=== PATIENT | male | born 1930 | race Caucasian/White ===

== ENCOUNTER 2017-09-30 08:32 | Day surgery (SDC) | payer MEDICARE, BC ==
[2017-09-30] VITALS (8 sets, daily range): BP systolic 121–140; BP diastolic 60–73
[~2017-09-30] VITALS: Ht 177.8 cm; Wt 70.0 kg
[2017-09-30] MEDS ORDERED: normal saline 1000ml 1,000 ML IV PRN (09:00)
[2017-09-30] MEDS ORDERED: MULT-1141 PO (09:22)
[2017-09-30] MEDS ORDERED: SIMV40TA PO (09:22)
[2017-09-30] MEDS ORDERED: UBID100C16 PO (09:22)
[2017-09-30] MEDS ORDERED: FOLI0.8T41 PO (09:22)
[2017-09-30] MEDS ORDERED: FURO-150 PO (09:22)
[2017-09-30] MEDS ORDERED: CALC667T5 PO (09:22)
[2017-09-30] MEDS ORDERED: OMEG-143 PO (09:22)
[2017-09-30] MEDS ORDERED: ASPI-1265 PO (09:22)
[2017-09-30] MEDS ORDERED: SITA25TA3 PO (09:22)
[2017-09-30] MEDS ORDERED: ASCO500C15 PO (09:22)
[2017-09-30] MEDS ORDERED: VITA-268 PO (09:22)
[2017-09-30] MEDS ORDERED: IRON-12 PO (09:22)
[2017-09-30] MEDS ORDERED: VITA400C65 PO (09:22)
[2017-09-30] MEDS ORDERED: GLIP10TA3 PO (09:22)
[2017-09-30 09:37] LABS: BASOPHILS % (AUTO) 0 % (0-1); EOSINOPHILS # (AUTO) 0.2 X10'3 (0-0.9); EOSINOPHILS % (AUTO) 3.2 % (0-6); HEMATOCRIT 27.2 % (42.0-52.0); HEMOGLOBIN 9.2 g/dl (14.0-17.9); LYMPHOCYTES # (AUTO) 0.6 X10'3 (1.1-4.8); LYMPHOCYTES % (AUTO) 10.9 % (21-51); MEAN CORPUSCULAR HEMOGLOBIN 32.9 PG (27.0-31.0); MEAN CORPUSCULAR HGB CONC 33.9 % (33.0-36.5); MEAN CORPUSCULAR VOLUME 97.1 FL (78-98); MEAN PLATELET VOLUME 7.2 FL (7.4-10.4); MONOCYTES # (AUTO) 0.3 X10'3 (0-0.9); MONOCYTES % (AUTO) 5.9 % (2-12); NEUTROPHILS # (AUTO) 4.5 X10'3 (1.8-7.7); PLATELET COUNT 179 X10'3 (140-440); RED CELL DISTRIBUTION WIDTH 15.6 % (11.5-14.5); WHITE BLOOD COUNT 5.6 X10'3 (4.5-11.0)
[2017-09-30] MEDS ORDERED: LIDOcaine 1%/PF (10mg/ml) 5ml vial SQ ONE (09:45)
[2017-09-30] MEDS ORDERED: midazolam 2 mg/2 ml injection IV PRN (09:45)
[2017-09-30] MEDS ORDERED: fentaNYL/PF 50MCG/1 ML 2ML syringe IV PRN (09:45)
[2017-09-30] MEDS ORDERED: heparin 1,000 UNITS/NS 500ml 500 ML ICATH ONE (09:45)
[2017-09-30] MEDS ORDERED: LIDOcaine 1%/PF (10mg/ml) 5ml vial ONE (09:48)
[2017-09-30] MEDS ORDERED: iohexol 300mg/ml 100ml inj. ONE (09:48)
[2017-09-30] MEDS ORDERED: midazolam 2 mg/2 ml injection ONE (09:55)
[2017-09-30] MEDS ORDERED: heparin 1,000unit/ml 10ml vial 10 ML ONE (09:55)
[2017-09-30] MEDS ORDERED: fentaNYL/PF 50MCG/1 ML 2ML syringe ONE (09:56)
[2017-09-30] MEDS ORDERED: heparin 1,000 UNITS/NS 500ml 500 ML ONE (10:08)
[2017-09-30] MEDS ORDERED: heparin 1,000 units/ml 10ml inj ICATH ONE (10:55)
== END 2017-09-30 13:10 | disposition home or self-care (01) ==
LOC: SSTAY O 08:32
PROVIDERS: ATTEND Radiology Diagnostic Radiology
DX: T82.858A Stenosis of other vascular prosthetic devices, implants and grafts, initial encounter (principal); I13.0 Hypertensive heart and chronic kidney disease with heart failure and stage 1 through stage 4 chronic kidney disease, or unspecified chronic kidney disease; N18.9 Chronic kidney disease, unspecified; E11.22 Type 2 diabetes mellitus with diabetic chronic kidney disease; I50.9 Heart failure, unspecified; E78.5 Hyperlipidemia, unspecified; Z88.2 Allergy status to sulfonamides; Z79.82 Long term (current) use of aspirin; Z79.84 Long term (current) use of oral hypoglycemic drugs; Z79.899 Other long term (current) drug therapy; Z87.891 Personal history of nicotine dependence; Z90.89 Acquired absence of other organs; Z98.890 Other specified postprocedural states; Z99.2 Dependence on renal dialysis; Y83.2 Surgical operation with anastomosis, bypass or graft as the cause of abnormal reaction of the patient, or of later complication, without mention of misadventure at the time of the procedure; Y92.89 Other specified places as the place of occurrence of the external cause
CPT/HCPCS: 36415; 36558; 36901; 76937; 77001; 82948; 85025; 99152; 99153; A6449; C1750; C1769; C1894; J1644; J2001; J2250; J3010; J7030; Q9967; A4620

== ENCOUNTER 2018-12-15 10:49 | Day surgery (SDC) | payer MEDICARE, BC ==
[~2018-12-15] VITALS: Ht 179.1 cm; Wt 71.4 kg
[~2018-12-15 10:49] MED LIST: ASCO500C15 PO; ASPI-1265 PO; CALC667T6 PO; FOLI0.8T41 PO; FURO-150 PO; GLIP10TA3 PO; IRON-12 PO; MULT-1141 PO; OMEG-143 PO; SIMV40TA PO; SITA25TA3 PO; UBID100C16 PO; VITA-268 PO; VITA400C65 PO
[2018-12-15] MEDS ORDERED: normal saline 1000ml 1,000 ML IV SCH (11:15)
[2018-12-15 11:30] VITALS: BP 165/76
[2018-12-15] MEDS ORDERED: HYDR-4069 PO (11:34)
[2018-12-15] MEDS ORDERED: GLIP10TA PO (11:34)
[2018-12-15] MEDS ORDERED: FURO80TA87 PO (11:34)
[2018-12-15] MEDS ORDERED: MUPI22OI30 TP (11:34)
[2018-12-15] MEDS ORDERED: GLIP5TAB13 PO (11:34)
[2018-12-15 11:45] LABS: BASOPHILS % (AUTO) 0.7 % (0-1); EOSINOPHILS # (AUTO) 0.1 X10'3 (0-0.9); EOSINOPHILS % (AUTO) 1.3 % (0-6); HEMATOCRIT 35.4 % (42.0-52.0); HEMOGLOBIN 12.3 g/dl (14.0-17.9); LYMPHOCYTES # (AUTO) 0.8 X10'3 (1.1-4.8); LYMPHOCYTES % (AUTO) 12.5 % (21-51); MEAN CORPUSCULAR HEMOGLOBIN 33.7 PG (27.0-31.0); MEAN CORPUSCULAR HGB CONC 34.9 g/dL (33.0-36.5); MEAN CORPUSCULAR VOLUME 96.7 FL (78-98); MEAN PLATELET VOLUME 8.1 FL (7.4-10.4); MONOCYTES # (AUTO) 0.4 X10'3 (0-0.9); MONOCYTES % (AUTO) 5.5 % (2-12); NEUTROPHILS # (AUTO) 5.1 X10'3 (1.8-7.7); PLATELET COUNT 111 X10'3 (140-440); RED BLOOD COUNT 3.66 X10'6 (4.70-6.10); RED CELL DISTRIBUTION WIDTH 14.8 % (11.5-14.5); WHITE BLOOD COUNT 6.4 X10'3 (4.5-11.0)
[2018-12-15 11:46] LABS: ALBUMIN 4.4 G/DL (3.4-5.0); ANION GAP 14 (8-16); BLOOD UREA NITROGEN 108 MG/DL (7-18); BUN/CREATININE RATIO 13.3 (5.4-32.0); CALCIUM 9.8 MG/DL (8.5-10.1); CHLORIDE 89 MMOL/L (99-107); CREATININE 8.11 MG/DL (0.60-1.10); GLUCOSE 238 MG/DL (70-104); POTASSIUM 3.1 MMOL/L (3.5-5.1); SODIUM 131 MMOL/L (135-145); TOTAL CARBON DIOXIDE 28.5 MMOL/L (24-32); eGFR 6 ML/MIN
[2018-12-15] MEDS ORDERED: iohexol 300mg/ml 100ml inj. ONE ×2 (13:20→14:30)
[2018-12-15] MEDS ORDERED: LIDOcaine 1%/PF 5ML 10 MG/ML VIAL ONE (13:20)
[2018-12-15] MEDS ORDERED: fentaNYL/PF 50MCG/1 ML 2ML syringe ONE ×2 (13:20→14:19)
[2018-12-15] MEDS ORDERED: midazolam 2 mg/2 ml injection ONE ×2 (13:20→14:19)
[2018-12-15] MEDS ORDERED: heparin 1,000 UNITS/NS 500ml 500 ML ONE ×2 (13:20→14:30)
[2018-12-15] MEDS ORDERED: tPA-cathflo 2 MG/2 ml IV flush ONE (13:57)
[2018-12-15] MEDS ORDERED: heparin 1,000 UNITS/NS 500ml 500 ML ICATH ONE (14:20)
[2018-12-15] MEDS ORDERED: LIDOcaine 1%/PF 5ML 10 MG/ML VIAL SQ ONE (14:20)
[2018-12-15] MEDS ORDERED: midazolam 2 mg/2 ml injection IV PRN (14:20)
[2018-12-15] MEDS ORDERED: fentaNYL/PF 50MCG/1 ML 2ML syringe IV PRN (14:20)
[2018-12-15] MEDS ORDERED: heparin 1,000unit/ml 10ml vial 10 ML ONE (14:24)
[2018-12-15 15:04] VITALS: BP 154/78
[2018-12-15 15:19] VITALS: BP 147/76
[2018-12-15 15:30] VITALS: BP 135/75
[2018-12-15 15:45] VITALS: BP 131/71
[2018-12-15 16:00] VITALS: BP 130/70
== END 2018-12-15 15:15 | disposition home or self-care (01) ==
LOC: SSTAY O 10:49
PROVIDERS: ATTEND Radiology Vascular & Interventional Radiology
DX: T82.868A Thrombosis due to vascular prosthetic devices, implants and grafts, initial encounter (principal); N18.9 Chronic kidney disease, unspecified; Y83.8 Other surgical procedures as the cause of abnormal reaction of the patient, or of later complication, without mention of misadventure at the time of the procedure; Z88.2 Allergy status to sulfonamides; Z79.899 Other long term (current) drug therapy; Z79.82 Long term (current) use of aspirin
CPT/HCPCS: 36415; 36905; 80048; 82948; 85025; 85610; 99152; 99153; C1725; C1757; C1769; C1894; J1644; J2001; J2250; J2997; J3010; J7030; Q9967

== ENCOUNTER 2019-05-21 10:20 | Day surgery (SDC) | payer MEDICARE, BC ==
[~2019-05-21] VITALS: Ht 177.8 cm; Wt 79.8 kg
[~2019-05-21 10:20] MED LIST changes: -FURO-150 PO; +FURO80TA87 PO; +GLIP10TA PO; -GLIP10TA3 PO; +GLIP5TAB13 PO; +HYDR-4069 PO; -IRON-12 PO; +MUPI22OI30 TP; +VITA-134 PO; -VITA400C65 PO
== END 2019-05-21 11:20 | disposition home or self-care (01) ==
LOC: SSTAY O 10:20 → EDSTATUS 11:00 → SSTAY O 11:20
PROVIDERS: ATTEND Radiology Vascular & Interventional Radiology
DX: R18.8 Other ascites (principal); R14.0 Abdominal distension (gaseous); Z53.8 Procedure and treatment not carried out for other reasons; R10.9 Unspecified abdominal pain
CPT/HCPCS: 49083; 76700

== ENCOUNTER 2019-07-10 12:04 | Day surgery (SDC) | payer MEDICARE, BC ==
[~2019-07-10] VITALS: Ht 179.1 cm; Wt 80.1 kg
[~2019-07-10 12:04] MED LIST changes: -ASCO500C15 PO; -FOLI0.8T41 PO; -HYDR-4069 PO; -MULT-1141 PO; -MUPI22OI30 TP; -SIMV40TA PO
[2019-07-10] MEDS ORDERED: normal saline 1000ml 1,000 ML IV PRN (12:35)
[2019-07-10 12:40] VITALS: BP 135/75
[2019-07-10] MEDS ORDERED: METO5TAB7 (13:19)
[2019-07-10] MEDS ORDERED: NITR0.4T48 (13:19)
[2019-07-10] MEDS ORDERED: FURO80TA3 (13:19)
[2019-07-10] MEDS ORDERED: SIMV10TA98 (13:19)
[2019-07-10] MEDS ORDERED: HYDR-4069 (13:19)
[2019-07-10] MEDS ORDERED: TICA90TA2 (13:19)
[2019-07-10] MEDS ORDERED: MIDO10TA (13:19)
[2019-07-10] MEDS ORDERED: FLO0.4C (13:19)
[2019-07-10] MEDS ORDERED: METO25TA6 (13:19)
[2019-07-10] MEDS ORDERED: FOLI1CAP7 (13:19)
[2019-07-10] MEDS ORDERED: ASPI-500 (13:19)
[2019-07-10 13:38] LABS: BASOPHILS % (AUTO) 0.8 % (0-1); EOSINOPHILS # (AUTO) 0.1 X10'3 (0-0.9); EOSINOPHILS % (AUTO) 3.3 % (0-6); HEMATOCRIT 27.8 % (42.0-52.0); HEMOGLOBIN 9.4 g/dl (14.0-17.9); LYMPHOCYTES # (AUTO) 0.5 X10'3 (1.1-4.8); LYMPHOCYTES % (AUTO) 11.3 % (21-51); MEAN CORPUSCULAR HEMOGLOBIN 34.2 PG (27.0-31.0); MEAN CORPUSCULAR HGB CONC 33.9 g/dL (33.0-36.5); MEAN CORPUSCULAR VOLUME 100.8 FL (78-98); MEAN PLATELET VOLUME 7.9 FL (7.4-10.4); MONOCYTES # (AUTO) 0.3 X10'3 (0-0.9); MONOCYTES % (AUTO) 8.6 % (2-12); NEUTROPHILS # (AUTO) 3.1 X10'3 (1.8-7.7); PLATELET COUNT 93 X10'3 (140-440); RED BLOOD COUNT 2.76 X10'6 (4.70-6.10); RED CELL DISTRIBUTION WIDTH 17.5 % (11.5-14.5)
[2019-07-10 13:55] LABS: ALBUMIN 3.2 G/DL (3.4-5.0); ANION GAP 17 (8-16); BLOOD UREA NITROGEN 113 MG/DL (7-18); BUN/CREATININE RATIO 12.8 (5.4-32.0); CALCIUM 9.7 MG/DL (8.5-10.1); CHLORIDE 96 MMOL/L (99-107); GLUCOSE 92 MG/DL (70-104); POTASSIUM 4.5 MMOL/L (3.5-5.1); SODIUM 137 MMOL/L (135-145); TOTAL CARBON DIOXIDE 24.2 MMOL/L (24-32); eGFR 6 ML/MIN
[2019-07-10 14:25] LABS: ANISOCYTOSIS 1+; PLATELET ESTIMATE DECREASED
[2019-07-10] MEDS ORDERED: heparin 1,000unit/ml 10ml vial 10 ML ONE (14:50)
[2019-07-10] MEDS ORDERED: fentaNYL/PF 50MCG/1 ML 2ML syringe ONE (14:51)
[2019-07-10] MEDS ORDERED: midazolam 2 mg/2 ml injection ONE (14:51)
[2019-07-10] MEDS ORDERED: LIDOcaine 1%/PF 5ML 10 MG/ML VIAL ONE (14:51)
[2019-07-10 16:10] VITALS: BP 123/67
[2019-07-10 16:46] VITALS: BP 111/70
[2019-07-10 16:55] VITALS: BP 119/70
[2019-07-10 17:23] VITALS: BP 116/68
== END 2019-07-10 17:27 | disposition home or self-care (01) ==
LOC: SSTAY O 12:04
PROVIDERS: ATTEND Radiology Vascular & Interventional Radiology
DX: N18.9 Chronic kidney disease, unspecified (principal); I82.890 Acute embolism and thrombosis of other specified veins; Z99.2 Dependence on renal dialysis; Z79.01 Long term (current) use of anticoagulants; Z79.899 Other long term (current) drug therapy
CPT/HCPCS: 36415; 36558; 76937; 80048; 82948; 85025; 85610; 99152; 99153; C1750; C1769; C1894; J1644; J2250; J3010; J7030; A9270

== ENCOUNTER 2019-08-24 07:40 | Day surgery (SDC) | payer MEDICARE, BC ==
[~2019-08-24] VITALS: Ht 177.8 cm; Wt 83.4 kg
[2019-08-24] VITALS (12 sets, daily range): BP systolic 86–101; BP diastolic 50–68
[~2019-08-24 07:40] MED LIST changes: +FLO0.4C; -GLIP10TA PO; -GLIP5TAB13 PO; +HYDR-4069; +METO25TA6; +METO5TAB7; +MIDO10TA; +NITR0.4T48; +SIMV10TA98; +TICA90TA2
[2019-08-24] MEDS ORDERED: normal saline 1000ml 1,000 ML IV PRN (08:15)
[2019-08-24] MEDS ORDERED: albumin 25% 100mL bottle x 1 IV PRN (08:15)
== END 2019-08-24 10:13 | disposition home or self-care (01) ==
LOC: SSTAY O 07:40
PROVIDERS: ATTEND Radiology Diagnostic Radiology
DX: R18.8 Other ascites (principal); I25.10 Atherosclerotic heart disease of native coronary artery without angina pectoris; I25.2 Old myocardial infarction; E78.5 Hyperlipidemia, unspecified; I10 Essential (primary) hypertension; N40.0 Benign prostatic hyperplasia without lower urinary tract symptoms; Z95.5 Presence of coronary angioplasty implant and graft; Z98.890 Other specified postprocedural states; Z87.891 Personal history of nicotine dependence; Z79.84 Long term (current) use of oral hypoglycemic drugs; Z79.899 Other long term (current) drug therapy; Z79.82 Long term (current) use of aspirin
CPT/HCPCS: 49083; C1729; J2001; J7030

== ENCOUNTER 2019-09-10 06:49 | Day surgery (SDC) | payer MEDICARE, BC ==
[~2019-09-10] VITALS: Ht 177.8 cm; Wt 89.9 kg
[~2019-09-10 06:49] MED LIST changes: -FLO0.4C; -HYDR-4069
[2019-09-10 07:15] VITALS: BP 97/56
[2019-09-10] MEDS ORDERED: normal saline 1000ml 1,000 ML IV SCH (07:15)
[2019-09-10] MEDS ORDERED: FLO0.4C PO (07:33)
[2019-09-10] MEDS ORDERED: albumin 25% 100mL bottle x 1 IV PRN (07:35)
[2019-09-10 08:25] VITALS: BP 90/51
[2019-09-10 08:40] VITALS: BP 99/49
[2019-09-10 08:55] VITALS: BP 96/46
[2019-09-10 09:10] VITALS: BP 99/50
== END 2019-09-10 09:10 | disposition home or self-care (01) ==
LOC: SSTAY O 06:49
PROVIDERS: ATTEND Radiology Diagnostic Radiology
DX: R18.8 Other ascites (principal); I25.10 Atherosclerotic heart disease of native coronary artery without angina pectoris; I25.2 Old myocardial infarction; E78.5 Hyperlipidemia, unspecified; I10 Essential (primary) hypertension; Z95.5 Presence of coronary angioplasty implant and graft; Z98.890 Other specified postprocedural states; Z88.2 Allergy status to sulfonamides; Z88.6 Allergy status to analgesic agent; Z79.82 Long term (current) use of aspirin; Z79.899 Other long term (current) drug therapy; Z87.891 Personal history of nicotine dependence
CPT/HCPCS: 49083; C1729

== ENCOUNTER 2019-09-24 06:53 | Day surgery (SDC) | payer MEDICARE, BC ==
[~2019-09-24] VITALS: Ht 177.8 cm; Wt 88.5 kg
[~2019-09-24 06:53] MED LIST changes: +FLO0.4C PO; -METO5TAB7
[2019-09-24 07:00] VITALS: BP 99/49
[2019-09-24] MEDS ORDERED: normal saline 1000ml 1,000 ML IV PRN (07:15)
[2019-09-24] MEDS ORDERED: ASCO500C12 PO (07:40)
[2019-09-24] MEDS ORDERED: FOLI0.4T2 PO (07:40)
== END 2019-09-24 09:00 | disposition home or self-care (01) ==
LOC: SSTAY O 06:53
PROVIDERS: ATTEND Radiology Vascular & Interventional Radiology
DX: R18.8 Other ascites (principal); Z53.8 Procedure and treatment not carried out for other reasons; I25.10 Atherosclerotic heart disease of native coronary artery without angina pectoris; I25.2 Old myocardial infarction; Z98.890 Other specified postprocedural states; I10 Essential (primary) hypertension; Z95.5 Presence of coronary angioplasty implant and graft; E78.5 Hyperlipidemia, unspecified; Z87.891 Personal history of nicotine dependence; Z88.2 Allergy status to sulfonamides; Z88.6 Allergy status to analgesic agent; Z79.899 Other long term (current) drug therapy; Z79.82 Long term (current) use of aspirin
CPT/HCPCS: 76705

== ENCOUNTER 2019-10-22 07:13 | Day surgery (SDC) | payer OTHER ==
[~2019-10-22 07:13] MED LIST changes: +ASCO500C12 PO; +GLIP10TA21 PO; +LACT10SO67 PO; -METO25TA6; +METO25TA6 PO; -MIDO10TA; +MIDO10TA PO; +MULT-1141 PO; +MUPI22OI30 TP; -NITR0.4T48; +NITR0.4T48 SL; -OMEG-143 PO; +OMEG1CAP13 PO; +SIMV10TA2 PO; -SIMV10TA98; -TICA90TA2; +TICA90TA2 PO; +ZAR5T PO
[2019-10-22 07:35] VITALS: BP 120/67
[2019-10-22] MEDS ORDERED: albumin 25% 100mL bottle x 1 IV PRN (07:55)
[2019-10-22] MEDS ORDERED: [UNRECOGNIZED DRUG - CODE] (07:55)
[2019-10-22 08:30] VITALS: BP 110/66
[2019-10-22 10:35] VITALS: BP 107/61
== END 2019-10-22 10:35 | disposition home or self-care (01) ==
LOC: MED 3N 07:13 → U 07:13
PROVIDERS: ATTEND Radiology Diagnostic Radiology
DX: R18.8 Other ascites (principal); Z53.8 Procedure and treatment not carried out for other reasons; E11.22 Type 2 diabetes mellitus with diabetic chronic kidney disease; N18.6 End stage renal disease; I25.10 Atherosclerotic heart disease of native coronary artery without angina pectoris; K74.60 Unspecified cirrhosis of liver; Z79.899 Other long term (current) drug therapy; Z99.2 Dependence on renal dialysis
CPT/HCPCS: 76705